=== PATIENT | female | born 2000 | race Caucasian/White ===

== ENCOUNTER 2022-10-01 19:38 | Emergency (ER) | payer OTHER ==
[2022-10-01 20:06] VITALS: BP 102/71; PULSE 89; RESP 18; TEMP 97.7; BMI 26.5
[2022-10-01] MEDS ORDERED: DIPHTH,PERTUSS(ACELL),TET 0.5 ML DISP.SYRIN IM ONE ×2 (20:24→20:38)
== END 2022-10-01 21:19 | disposition home or self-care (01) ==
LOC: JER 19:38 → JERFT 19:38
PROC: 0HQFXZZ Repair Right Hand Skin, External Approach (ICD-10-PCS; principal; 2022-10-01)
PROC: 3E0234Z Introduction of Serum, Toxoid and Vaccine into Muscle, Percutaneous Approach (ICD-10-PCS; 2022-10-01)
DX: S61.216A Laceration without foreign body of right little finger without damage to nail, initial encounter (principal); W25.XXXA Contact with sharp glass, initial encounter; Y93.E5 Activity, floor mopping and cleaning
CPT/HCPCS: 73130-TC-RT-FY; 90715; 99283-25